=== PATIENT | female | born 1995 | race Caucasian/White ===

== ENCOUNTER → 2022-10-08 13:21 | Outpatient (CLI) | payer BC, SELFPAY ==
[2022-10-08 15:08] LABS: Add Manual Diff / Slide Review NO; Basophils Absolute Auto 100 /uL (0-100); Basophils Percent Auto 0.5 % (0-2); Eosinophils Absolute Auto 100 /uL (0-450); Eosinophils Percent Auto 0.9 % (2-4); Hematocrit 38.8 % (36-46); Hemoglobin 13.4 g/dL (12.0-16.0); Lymphocytes Absolute Auto 2700 /uL (1100-4500); Lymphocytes Percent Auto 28.9 % (25-40); Mean Corpuscular HGB Conc 34.6 % (30-36); Mean Corpuscular Hemoglobin 35.1 PG (26-34); Mean Corpuscular Volume 101.6 fL (80-100); Monocytes Absolute Auto 400 /uL (0-900); Monocytes Percent Auto 4.8 % (3-14); Neutrophils Absolute Auto 6000 /uL (1500-7000); Neutrophils Percent Auto 64.9 % (50-75); Platelet Count 350 X10^3/uL (150-400); Red Blood Cell Count 3.82 X10^6/uL (4.0-5.2); Red Cell Distribution Width 12.6 % (11.6-14.8); White Blood Cell Count 9.3 X10^3/uL (4.5-11.0)
[2022-10-08 15:14] LABS: Hemoglobin A1C% w Est Avg Glu 10.8 % (4.0-6.0)
[2022-10-08 15:46] LABS: Albumin 4.4 g/dL (3.5-5.0); Albumin Globulin Ratio 1.4 (1.0-2.8); Alkaline Phosphatase 208 U/L (38-126); Aspartate Aminotransferase 77 IU/L (14-36); BUN Creatinine Ratio 35.7 (6-22); Bilirubin Total 0.5 mg/dL (0.2-1.3); Blood Urea Nitrogen 20 mg/dL (7-17); Calcium 9.8 mg/dL (8.4-10.2); Carbon Dioxide 14 mmol/L (22-32); Chloride 99 mmol/L (98-107); Cholesterol 283 mg/dL (140-199); Estimated Glomerular Filt Rate > 60 mL/min (>60); Globulin 3.2 g/dL (1.7-4.1); Glucose 355 mg/dL (70-100); HDL Cholesterol 54 mg/dL (40-60); HEMOLYSIS < 15 (0-50); Potassium 4.2 mmol/L (3.4-5.1); Sodium 136 mmol/L (137-145); Total Protein 7.6 g/dL (6.3-8.2)
[2022-10-08 15:52] LABS: Alanine Aminotransferase 67 IU/L (<35)
[2022-10-08 16:06] LABS: Triglycerides 906 mg/dL (35-150)
[2022-10-08 16:16] LABS: Thyroid Stimulating Hormone 1.05 uIU/mL (0.47-4.68)
[2022-10-09 06:09] LABS: HSV 2 IGG AB < 0.91 index (0.00-0.90); HSV1IGG 8.19 index (0.00-0.90)
== END ==
PROVIDERS: Referring Provider Family Medicine; Visit Provider Family Medicine
DX: E10.9 Type 1 diabetes mellitus without complications (principal); B00.89 Other herpesviral infection
CPT/HCPCS: 36415; 80053; 80061; 83036; 84443; 85025; 86695; 86696

== ENCOUNTER 2022-12-15 04:39 | Emergency (ER) | payer BC, SELFPAY ==
[2022-12-15] VITALS (22 sets, daily range): BP systolic 114–130; BP diastolic 71–90; PULSE 98–134; RESP 16–22; TEMP 36.6; O2SAT 94–100; BMI 24.7
--- NOTE | 2022-12-15 04:59 | ED_ITS ---
HPI - General Adult <Jake BellaDO joanna - Last Filed: 12/15/22 17:58> General Chief complaint: Diabetic Problem Stated complaint: DIABETIC COMPLICATIONS Time Seen by Provider: 12/15/22 04:59 Source: patient Mode of arrival: Ambulatory Limitations: no limitations History of Present Illness HPI narrative: Patient is a 27-year-old female. She is a insulin-dependent diabetic. She stated that she did have a fairly high carbohydrate meal this evening. She thought that she had dosed herself with insulin but she now questions as to whether or not the needle that she was using actually broke the skin. Because of this her glucose level raysa to greater than 400. She then dosed herself with 45 units. Her blood sugar then dropped to 130s. She started to generally not feel very well. Did have some vomiting. She states that she is been feeling very anxious secondary to work which she admits also causes her blood sugars to become very erratic. Related Data Allergies Allergy/AdvReac Type Severity Reaction Status Date / Time iodine Allergy Verified 12/15/22 04:58 Penicillins Allergy Hives Verified 12/15/22 04:57 Review of Systems <Jake ShayneDO joanna - Last Filed: 12/15/22 17:58> Cardiovascular Cardiovascular: Reports system reviewed and no additional complaints, except as documented Respiratory Respiratory: Reports system reviewed and no additional complaints, except as documented Gastrointestinal Gastrointestinal: Reports system reviewed and no additional complaints, except as documented Psychiatric Psychiatric: Reports system reviewed and no additional complaints, except as documented Exam <Jake ShayneDO joanna - Last Filed: 12/15/22 17:58> Initial Vital Signs Initial Vital Signs: Vital Signs Pulse Rate 134 H 12/15/22 04:43 Pulse Oximetry 99 12/15/22 04:43 Const General: cooperative and comfortable HENMT Head: normal to inspection and normocephalic Resp Effort & Inspection: normal respiratory effort Auscultation: clear to auscultation bilaterally Cardio Rate: tachycardic Rhythm: regular rhythm GI Inspection: normal to inspection Skin General: no rashes or lesions noted Neuro General: patient alert, patient awake and moves all extremities Extrem General: normal to inspection and capillary refill normal <Joseline Mccallum DO - Last Filed: 12/15/22 14:35> Initial Vital Signs Initial Vital Signs: Vital Signs Pulse Rate 134 H 12/15/22 04:43 Pulse Oximetry 99 12/15/22 04:43 Course <Jake Cavazos DO - Last Filed: 12/15/22 17:58> Orders Ordered: ED Orders 12/15/22 12:00 BMP [Basic Metabolic Panel] Stat Discontinued Medications Sodium Chloride (Normal Saline 0.9%) 1,000 mls @ 1,000 mls/hr IV BOLUS ONE Stop: 12/15/22 07:35 Last Infusion: 12/15/22 07:52 Dose: Infused Documented By: Admin: 12/15/22 06:50 Dose: 1,000 mls/hr Documented By: LY Dextrose/Sodium Chloride (Dextrose 5%-0.45% Ns) 1,000 mls @ 125 mls/hr IV CONT AMAN Last Infusion: 12/15/22 12:57 Dose: 0 mls/hr Documented By: Admin: 12/15/22 10:02 Dose: 125 mls/hr Documented By: BLAKE Dextrose (D10w) 100 mls @ 1,200 mls/hr IV PRN PRN PRN Reason: Hypoglycemia Last Infusion: 12/15/22 12:16 Dose: Infused Documented By: Admin: 12/15/22 12:03 Dose: 1,200 mls/hr Documented By: PEE Insulin Human Regular (Insulin Regular 100 Unit/Ml 3 Ml Vial) 10 unit SUBCUT NOW ONE Stop: 12/15/22 10:12 Last Admin: 12/15/22 10:16 Dose: 10 unit Documented By: BLAKE Co-signed By: CRICKET Ondansetron HCl (Ondansetron 4 Mg Odt) 4 mg SL NOW ONE Stop: 12/15/22 05:02 Last Admin: 12/15/22 05:05 Dose: 4 mg Documented By: LY Potassium Chloride (Potassium Chloride 20 Meq Tab) 40 meq PO NOW ONE Stop: 12/15/22 12:52 Last Admin: 12/15/22 13:14 Dose: 40 meq Documented By: PEE Vital Signs Vital signs: Vital Signs - 8 hr 12/15/22 10:00 12/15/22 10:30 12/15/22 11:00 Pulse Rate 110 H 101 H 103 H Blood Pressure Pulse Oximetry 99 97 97 Oxygen Delivery Method 12/15/22 11:30 12/15/22 12:00 12/15/22 12:10 Pulse Rate 119 H 117 H Blood Pressure 130/90 Pulse Oximetry 98 94 Oxygen Delivery Method Room Air Room Air 12/15/22 12:10 12/15/22 12:30 12/15/22 13:00 Pulse Rate 113 H 104 H 103 H Blood Pressure Pulse Oximetry 94 98 97 Oxygen Delivery Method Room Air Room Air <Joseline Xena, DO - Last Filed: 12/15/22 14:35> Orders Ordered: ED Orders 12/15/22 12:00 BMP [Basic Metabolic Panel] Stat Discontinued Medications Sodium Chloride (Normal Saline 0.9%) 1,000 mls @ 1,000 mls/hr IV BOLUS ONE Stop: 12/15/22 07:35 Last Infusion: 12/15/22 07:52 Dose: Infused Documented By: Admin: 12/15/22 06:50 Dose: 1,000 mls/hr Documented By: LY Dextrose/Sodium Chloride (Dextrose 5%-0.45% Ns) 1,000 mls @ 125 mls/hr IV CONT AMAN Last Infusion: 12/15/22 12:57 Dose: 0 mls/hr Documented By: Admin: 12/15/22 10:02 Dose: 125 mls/hr Documented By: BLAKE Dextrose (D10w) 100 mls @ 1,200 mls/hr IV PRN PRN PRN Reason: Hypoglycemia Last Infusion: 12/15/22 12:16 Dose: Infused Documented By: Admin: 12/15/22 12:03 Dose: 1,200 mls/hr Documented By: PEE Insulin Human Regular (Insulin Regular 100 Unit/Ml 3 Ml Vial) 10 unit SUBCUT NOW ONE Stop: 12/15/22 10:12 Last Admin: 12/15/22 10:16 Dose: 10 unit Documented By: BLAKE Co-signed By: CRICKET Ondansetron HCl (Ondansetron 4 Mg Odt) 4 mg SL NOW ONE Stop: 12/15/22 05:02 Last Admin: 12/15/22 05:05 Dose: 4 mg Documented By: LY Potassium Chloride (Potassium Chloride 20 Meq Tab) 40 meq PO NOW ONE Stop: 12/15/22 12:52 Last Admin: 12/15/22 13:14 Dose: 40 meq Documented By: PEE Vital Signs Vital signs: Vital Signs - 8 hr 12/15/22 10:00 12/15/22 10:30 12/15/22 11:00 Pulse Rate 110 H 101 H 103 H Blood Pressure Pulse Oximetry 99 97 97 Oxygen Delivery Method 12/15/22 11:30 12/15/22 12:00 12/15/22 12:10 Pulse Rate 119 H 117 H Blood Pressure 130/90 Pulse Oximetry 98 94 Oxygen Delivery Method Room Air Room Air 12/15/22 12:10 12/15/22 12:30 12/15/22 13:00 Pulse Rate 113 H 104 H 103 H Blood Pressure Pulse Oximetry 94 98 97 Oxygen Delivery Method Room Air Room Air Medical Decision Making <Jake Cavazos, - Last Filed: 12/15/22 17:58> Lab Data Lab results reviewed: Yes I reviewed the patient's lab results. 12/15/22 05:30 12/15/22 12:00 Labs: Lab Results 12/15/22 12/15/22 12/15/22 Range/Units 05:30 06:48 07:28 WBC 10.7 (4.5-11.0) X10^3/uL RBC 3.67 L (4.0-5.2) X10^6/uL Hgb 13.1 (12.0-16.0) g/dL Hct 37.9 (36-46) % MCV 103.4 H (80-100) fL MCH 35.9 H (26-34) PG MCHC 34.7 (30-36) % RDW 14.2 (11.6-14.8) % Plt Count 283 (150-400) X10^3/uL Neut % (Auto) 68.6 (50-75) % Lymph % (Auto) 18.2 L (25-40) % Whitman % (Auto) 12.2 (3-14) % Eos % (Auto) 0.1 L (2-4) % Baso % (Auto) 0.9 (0-2) % Neut # (Auto) 7300 H (6110-2966) /uL Lymph # (Auto) 2000 (6441-6177) /uL Whitman # (Auto) 1300 H (0-900) /uL Eos # (Auto) 0 (0-450) /uL Baso # (Auto) 100 (0-100) /uL VBG pH 7.33 (7.33-7.43) VBG pCO2 27.4 L (45-50) mmHg VBG pO2 37 (35-45) mmHg VBG HCO3 14 L (24-28) mmol/L VBG Total CO2 15 L (24-29) mmol/L VBG O2 Saturation 68 L (70-75) % VBG Base Excess -12.0 L (0-4) mmol/L FiO2 21 Sodium 136 L (137-145) mmol/L Potassium 3.9 (3.4-5.1) mmol/L Chloride 99 (98-107) mmol/L Carbon Dioxide 11 L (22-32) mmol/L BUN 16 (7-17) mg/dL Creatinine 0.60 (0.52-1.04) mg/dL Estimated GFR > 60 (>60) mL/min BUN/Creatinine Ratio 26.7 H (6-22) Glucose 113 H (70-100) mg/dL Hemoglobin A1c 12.1 H (4.0-6.0) % Calcium 9.8 (8.4-10.2) mg/dL Phosphorus 4.1 (2.5-4.5) mg/dL Magnesium 1.9 (1.6-2.3) mg/dL Total Bilirubin 0.7 (0.2-1.3) mg/dL AST 55 H (14-36) IU/L ALT 84 H (<35) IU/L Alkaline Phosphatase 215 H (38-126) U/L Total Protein 8.0 (6.3-8.2) g/dL Albumin 4.6 (3.5-5.0) g/dL Globulin 3.4 (1.7-4.1) g/dL Albumin/Globulin Ratio 1.4 (1.0-2.8) Lipase 62 (23-300) U/L Serum , Qual Negative (Negative) Urine Color Yellow Urine Appearance Clear Urine pH 5.5 (4.5-8.0) Ur Specific [place] 1.015 (1.000-1.035) Urine Protein Negative (Negative) Urine Glucose (UA) Negative (Negative) g/dL Urine Ketones 3+ H (NEGATIVE) Urine Occult Blood 1+ H (Negative) Urine Nitrate Negative (Negative) Urine Bilirubin 2+ H (NEGATIVE) Ur Bilirubin Confirm Negative (Negative) Urine Urobilinogen 0.2 (0.2) E.U./dL Ur Leukocyte Esterase 2+ H (NEGATIVE) Urine RBC 1-5/hpf (0-5/HPF) Urine WBC 5-10/hpf H (0-5/HPF) Ur Squamous Epith Cells 1-5 /hpf (0-5/HPF) Urine Bacteria Few (2-10) H (None) Ur Culture Indicated? Specimen cultured Ketones 3.68 H (<0.27) mmol/L 12/15/22 12/15/22 Range/Units 08:50 12:00 WBC (4.5-11.0) X10^3/uL RBC (4.0-5.2) X10^6/uL Hgb (12.0-16.0) g/dL Hct (36-46) % MCV (80-100) fL MCH (26-34) PG MCHC (30-36) % RDW (11.6-14.8) % Plt Count (150-400) X10^3/uL Neut % (Auto) (50-75) % Lymph % (Auto) (25-40) % Whitman % (Auto) (3-14) % Eos % (Auto) (2-4) % Baso % (Auto) (0-2) % Neut # (Auto) (8002-6321) /uL Lymph # (Auto) (2566-4628) /uL Whitman # (Auto) (0-900) /uL Eos # (Auto) (0-450) /uL Baso # (Auto) (0-100) /uL VBG pH (7.33-7.43) VBG pCO2 (45-50) mmHg VBG pO2 (35-45) mmHg VBG HCO3 (24-28) mmol/L VBG Total CO2 (24-29) mmol/L VBG O2 Saturation (70-75) % VBG Base Excess (0-4) mmol/L FiO2 Sodium 137 138 (137-145) mmol/L Potassium 3.6 3.3 L (3.4-5.1) mmol/L Chloride 107 106 (98-107) mmol/L Carbon Dioxide 15 L 22 (22-32) mmol/L BUN 13 12 (7-17) mg/dL Creatinine 0.48 L 0.47 L (0.52-1.04) mg/dL Estimated GFR > 60 > 60 (>60) mL/min BUN/Creatinine Ratio 27.1 H 25.5 H (6-22) Glucose 119 H 63 L (70-100) mg/dL Hemoglobin A1c (4.0-6.0) % Calcium 8.4 8.9 (8.4-10.2) mg/dL Phosphorus (2.5-4.5) mg/dL Magnesium (1.6-2.3) mg/dL Total Bilirubin (0.2-1.3) mg/dL AST (14-36) IU/L ALT (<35) IU/L Alkaline Phosphatase (38-126) U/L Total Protein (6.3-8.2) g/dL Albumin (3.5-5.0) g/dL Globulin (1.7-4.1) g/dL Albumin/Globulin Ratio (1.0-2.8) Lipase (23-300) U/L Serum , Qual (Negative) Urine Color Urine Appearance Urine pH (4.5-8.0) Ur Specific [place] (1.000-1.035) Urine Protein (Negative) Urine Glucose (UA) (Negative) g/dL Urine Ketones (NEGATIVE) Urine Occult Blood (Negative) Urine Nitrate (Negative) Urine Bilirubin (NEGATIVE) Ur Bilirubin Confirm (Negative) Urine Urobilinogen (0.2) E.U./dL Ur Leukocyte Esterase (NEGATIVE) Urine RBC (0-5/HPF) Urine WBC (0-5/HPF) Ur Squamous Epith Cells (0-5/HPF) Urine Bacteria (None) Ur Culture Indicated? Ketones (<0.27) mmol/L Point of Care Testing Glucose POC 122 Point of care testing: Point of Care Testing Glucose POC 122 [facility] Narrative Medical decision making narrative: Patient is an insulin-dependent diabetic. There was some question as to whether not she gave her regular dose of insulin last evening. She then ate a meal high in carbohydrates. Her blood sugar than elevated. She then gave herself 45 units of fast acting insulin. Her blood sugar dropped greater than 250 points and approximately 1.5 hours. Initially thought that this was most likely the cause of her symptoms. We then gave her something to eat and she did tolerate oral intake. She still remained tachycardic. Blood was drawn. Patient has a CO2 less than 15. Has ketones. Her blood sugar is actually less than 120. PH is 7.3. She does have an anion gap of 26. We did have difficulty obtaining an IV so this was just a blood draw. I then informed the patient that she does have some lab findings that were consistent with DKA. She has been in DKA in the past. She agreed to another attempt at starting an IV and fluids. She stated that she was actually feeling much better. Care turned over to Dr. Mccallum to follow-up and disposition. <Joseline Mccallum, DO - Last Filed: 12/15/22 14:35> Lab Data Labs: Lab Results 12/15/22 12/15/22 12/15/22 Range/Units 05:30 06:48 07:28 WBC 10.7 (4.5-11.0) X10^3/uL RBC 3.67 L (4.0-5.2) X10^6/uL Hgb 13.1 (12.0-16.0) g/dL Hct 37.9 (36-46) % MCV 103.4 H (80-100) fL MCH 35.9 H (26-34) PG MCHC 34.7 (30-36) % RDW 14.2 (11.6-14.8) % Plt Count 283 (150-400) X10^3/uL Neut % (Auto) 68.6 (50-75) % Lymph % (Auto) 18.2 L (25-40) % Whitman % (Auto) 12.2 (3-14) % Eos % (Auto) 0.1 L (2-4) % Baso % (Auto) 0.9 (0-2) % Neut # (Auto) 7300 H (0644-8600) /uL Lymph # (Auto) 2000 (9354-2192) /uL Whitman # (Auto) 1300 H (0-900) /uL Eos # (Auto) 0 (0-450) /uL Baso # (Auto) 100 (0-100) /uL VBG pH 7.33 (7.33-7.43) VBG pCO2 27.4 L (45-50) mmHg VBG pO2 37 (35-45) mmHg VBG HCO3 14 L (24-28) mmol/L VBG Total CO2 15 L (24-29) mmol/L VBG O2 Saturation 68 L (70-75) % VBG Base Excess -12.0 L (0-4) mmol/L FiO2 21 Sodium 136 L (137-145) mmol/L Potassium 3.9 (3.4-5.1) mmol/L Chloride 99 (98-107) mmol/L Carbon Dioxide 11 L (22-32) mmol/L BUN 16 (7-17) mg/dL Creatinine 0.60 (0.52-1.04) mg/dL Estimated GFR > 60 (>60) mL/min BUN/Creatinine Ratio 26.7 H (6-22) Glucose 113 H (70-100) mg/dL Hemoglobin A1c 12.1 H (4.0-6.0) % Calcium 9.8 (8.4-10.2) mg/dL Phosphorus 4.1 (2.5-4.5) mg/dL Magnesium 1.9 (1.6-2.3) mg/dL Total Bilirubin 0.7 (0.2-1.3) mg/dL AST 55 H (14-36) IU/L ALT 84 H (<35) IU/L Alkaline Phosphatase 215 H (38-126) U/L Total Protein 8.0 (6.3-8.2) g/dL Albumin 4.6 (3.5-5.0) g/dL Globulin 3.4 (1.7-4.1) g/dL Albumin/Globulin Ratio 1.4 (1.0-2.8) Lipase 62 (23-300) U/L Serum , Qual Negative (Negative) Urine Color Yellow Urine Appearance Clear Urine pH 5.5 (4.5-8.0) Ur Specific [place] 1.015 (1.000-1.035) Urine Protein Negative (Negative) Urine Glucose (UA) Negative (Negative) g/dL Urine Ketones 3+ H (NEGATIVE) Urine Occult Blood 1+ H (Negative) Urine Nitrate Negative (Negative) Urine Bilirubin 2+ H (NEGATIVE) Ur Bilirubin Confirm Negative (Negative) Urine Urobilinogen 0.2 (0.2) E.U./dL Ur Leukocyte Esterase 2+ H (NEGATIVE) Urine RBC 1-5/hpf (0-5/HPF) Urine WBC 5-10/hpf H (0-5/HPF) Ur Squamous Epith Cells 1-5 /hpf (0-5/HPF) Urine Bacteria Few (2-10) H (None) Ur Culture Indicated? Specimen cultured Ketones 3.68 H (<0.27) mmol/L 12/15/22 12/15/22 Range/Units 08:50 12:00 WBC (4.5-11.0) X10^3/uL RBC (4.0-5.2) X10^6/uL Hgb (12.0-16.0) g/dL Hct (36-46) % MCV (80-100) fL MCH (26-34) PG MCHC (30-36) % RDW (11.6-14.8) % Plt Count (150-400) X10^3/uL Neut % (Auto) (50-75) % Lymph % (Auto) (25-40) % Whitman % (Auto) (3-14) % Eos % (Auto) (2-4) % Baso % (Auto) (0-2) % Neut # (Auto) (9355-0663) /uL Lymph # (Auto) (5524-0121) /uL Whitman # (Auto) (0-900) /uL Eos # (Auto) (0-450) /uL Baso # (Auto) (0-100) /uL VBG pH (7.33-7.43) VBG pCO2 (45-50) mmHg VBG pO2 (35-45) mmHg VBG HCO3 (24-28) mmol/L VBG Total CO2 (24-29) mmol/L VBG O2 Saturation (70-75) % VBG Base Excess (0-4) mmol/L FiO2 Sodium 137 138 (137-145) mmol/L Potassium 3.6 3.3 L (3.4-5.1) mmol/L Chloride 107 106 (98-107) mmol/L Carbon Dioxide 15 L 22 (22-32) mmol/L BUN 13 12 (7-17) mg/dL Creatinine 0.48 L 0.47 L (0.52-1.04) mg/dL Estimated GFR > 60 > 60 (>60) mL/min BUN/Creatinine Ratio 27.1 H 25.5 H (6-22) Glucose 119 H 63 L (70-100) mg/dL Hemoglobin A1c (4.0-6.0) % Calcium 8.4 8.9 (8.4-10.2) mg/dL Phosphorus (2.5-4.5) mg/dL Magnesium (1.6-2.3) mg/dL Total Bilirubin (0.2-1.3) mg/dL AST (14-36) IU/L ALT (<35) IU/L Alkaline Phosphatase (38-126) U/L Total Protein (6.3-8.2) g/dL Albumin (3.5-5.0) g/dL Globulin (1.7-4.1) g/dL Albumin/Globulin Ratio (1.0-2.8) Lipase (23-300) U/L Serum , Qual (Negative) Urine Color Urine Appearance Urine pH (4.5-8.0) Ur Specific [place] (1.000-1.035) Urine Protein (Negative) Urine Glucose (UA) (Negative) g/dL Urine Ketones (NEGATIVE) Urine Occult Blood (Negative) Urine Nitrate (Negative) Urine Bilirubin (NEGATIVE) Ur Bilirubin Confirm (Negative) Urine Urobilinogen (0.2) E.U./dL Ur Leukocyte Esterase (NEGATIVE) Urine RBC (0-5/HPF) Urine WBC (0-5/HPF) Ur Squamous Epith Cells (0-5/HPF) Urine Bacteria (None) Ur Culture Indicated? Ketones (<0.27) mmol/L Point of Care Testing Glucose POC 122 Point of care testing: Point of Care Testing Glucose POC 122 MDM Narrative Medical decision making narrative: Patient is an insulin-dependent diabetic. There was some question as to whether not she gave her regular dose of insulin last evening. She then ate a meal high in carbohydrates. Her blood sugar than elevated. She then gave herself 45 units of fast acting insulin. Her blood sugar dropped greater than 250 points and approximately 1.5 hours. Initially thought that this was most likely the cause of her symptoms. We then gave her something to eat and she did tolerate oral intake. She still remained tachycardic. Blood was drawn. Patient has a CO2 less than 15. Has ketones. Her blood sugar is actually less than 120. PH is 7.3. She does have an anion gap of 26. We did have difficulty obtaining an IV so this was just a blood draw. I then informed the patient that she does have some lab findings that were consistent with DKA. She has been in DKA in the past. She agreed to another attempt at starting an IV and fluids. She stated that she was actually feeling much better. Care turned over to Dr. Mccallum to follow-up and disposition. Dr. Mccallum-patient signed out to me by Dr. Cavazos of seen evaluated patient myself. She is awake alert oriented she is eating her heart rate has improved with a L fluid. She does have an anion gap. Will give her another L of fluid recheck labs. She is positive for ketones pH 7.3, she is quite adamant that she does not want to be admitted. Patient given 10 units subcutaneous insulin placed on D5 half-normal she did become hypoglycemic required D10 however she was never vomiting she was always able to eat and drink. Repeat labs show closed anion gap. Hemoglobin A1c is greater than 12 poorly-controlled diabetic. She does not have a provider appear trying to get an loftsman. Patient is potassium 3.3 she is given oral potassium. She overall appears very well. She feels very comfortable going home and managing if she becomes slightly hypoglycemic. At this time she does not want to be admitted there is no reason for her to be admitted. Discharge Plan Departure Patient Disposition: Home Clinical Impression: Diabetes mellitus with ketoacidosis Instructions: DI for Diabetic Ketoacidosis Activity Restrictions/Additional Instructions: *You have been diagnosed with diabetic ketoacidosis *What to do: At this time please continue to check her sugars regularly at home over next few hours. Eat a good meal. I do encourage you to see your primary care provider who can point You towards endocrinology if needed. *Continue to take medications as directed *Follow up with your primary care provider in 2-3 days or call [phone] *Return to ER if you should have increasing weakness nausea vomiting abdominal pain fever or any new, worsening or concerning symptoms Stand Alone Forms: Patient Portal/API
[2022-12-15] MEDS: ONDANSETRON 4 MG ODT SL (05:05)
[2022-12-15 06:10] LABS: Add Manual Diff / Slide Review NO; Basophils Absolute Auto 100 /uL (0-100); Basophils Percent Auto 0.9 % (0-2); Eosinophils Absolute Auto 0 /uL (0-450); Eosinophils Percent Auto 0.1 % (2-4); Hematocrit 37.9 % (36-46); Hemoglobin 13.1 g/dL (12.0-16.0); Lymphocytes Absolute Auto 2000 /uL (1100-4500); Lymphocytes Percent Auto 18.2 % (25-40); Mean Corpuscular HGB Conc 34.7 % (30-36); Mean Corpuscular Hemoglobin 35.9 PG (26-34); Mean Corpuscular Volume 103.4 fL (80-100); Monocytes Absolute Auto 1300 /uL (0-900); Monocytes Percent Auto 12.2 % (3-14); Neutrophils Absolute Auto 7300 /uL (1500-7000); Neutrophils Percent Auto 68.6 % (50-75); Platelet Count 283 X10^3/uL (150-400); Red Blood Cell Count 3.67 X10^6/uL (4.0-5.2); Red Cell Distribution Width 14.2 % (11.6-14.8); White Blood Cell Count 10.7 X10^3/uL (4.5-11.0)
[2022-12-15 06:33] LABS: Alanine Aminotransferase 84 IU/L (<35); Albumin 4.6 g/dL (3.5-5.0); Albumin Globulin Ratio 1.4 (1.0-2.8); Alkaline Phosphatase 215 U/L (38-126); Aspartate Aminotransferase 55 IU/L (14-36); BUN Creatinine Ratio 26.7 (6-22); Bilirubin Total 0.7 mg/dL (0.2-1.3); Blood Urea Nitrogen 16 mg/dL (7-17); Calcium 9.8 mg/dL (8.4-10.2); Carbon Dioxide 11 mmol/L (22-32); Chloride 99 mmol/L (98-107); Estimated Glomerular Filt Rate > 60 mL/min (>60); Globulin 3.4 g/dL (1.7-4.1); Glucose 113 mg/dL (70-100); HEMOLYSIS < 15 (0-50); Ketones (Beta-Hydroxybutyrate) 3.68 mmol/L (<0.27); Lipase 62 U/L (23-300); Potassium 3.9 mmol/L (3.4-5.1); Sodium 136 mmol/L (137-145)
[2022-12-15 06:34] LABS: Magnesium 1.9 mg/dL (1.6-2.3); Phosphorous 4.1 mg/dL (2.5-4.5)
[2022-12-15 06:46] LABS: Pregnancy Test Serum,Qual Negative (Negative)
[2022-12-15] MEDS: SODIUM CHLORIDE 0.9% 1,000 ML 1000 ML IV (06:50)
[2022-12-15 07:01] LABS: Fractionated Inspired Oxygen 21; HCO3 VBG 14 mmol/L (24-28); Oxygen Saturation VBG 68 % (70-75); PCO2 VBG 27.4 mmHg (45-50); PO2 VBG 37 mmHg (35-45); Total CO2 VBG 15 mmol/L (24-29); pH VBG 7.33 (7.33-7.43)
[2022-12-15 07:58] LABS: Appearance Urine UA CLEAR; Bilirubin Urine UA 2+ (NEGATIVE); Color Urine UA YELLOW; Glucose Urine UA NEGATIVE (Negative); Ketones Urine UA 3+ (NEGATIVE); Leukocyte Esterase Urine UA 2+ (NEGATIVE); Nitrite Urine UA NEGATIVE (Negative); Occult Blood Urine UA 1+ (Negative); Protein Urine UA NEGATIVE (Negative); Specific Gravity Urine UA 1.015 (1.000-1.035); Urobilinogen Urine UA 0.2 E.U./dL (0.2)
[2022-12-15 08:02] LABS: pH Urine UA 5.5 (4.5-8.0)
[2022-12-15 08:06] LABS: Bacteria Urine Few (2-10); Ictotest Urine Negative (Negative); RBC Urine 1-5/HPF (0-5/HPF); Squamous Epithelial Cell Urine 1-5 /HPF (0-5/HPF); WBC Urine 5-10/HPF (0-5/HPF)
[2022-12-15 08:07] LABS: Culture Indicated Urine Specimen Cultured
[2022-12-15 09:20] LABS: BUN Creatinine Ratio 27.1 (6-22); Blood Urea Nitrogen 13 mg/dL (7-17); Calcium 8.4 mg/dL (8.4-10.2); Carbon Dioxide 15 mmol/L (22-32); Chloride 107 mmol/L (98-107); Estimated Glomerular Filt Rate > 60 mL/min (>60); Glucose 119 mg/dL (70-100); HEMOLYSIS < 15 (0-50); Potassium 3.6 mmol/L (3.4-5.1); Sodium 137 mmol/L (137-145)
[2022-12-15 09:59] LABS: Hemoglobin A1C% w Est Avg Glu 12.1 % (4.0-6.0)
[2022-12-15] MEDS: DEXTROSE 5%-0.45% NS 1,000 ML 125 ML IV (10:02)
--- NOTE | 2022-12-15 10:11 | PC.NURSE ---
Dr. Mccallum to re-time insulin for now; aware of BG 98, okay'd pt to eat small amount; pt tolerating PO food and fluids at this time.
[2022-12-15] MEDS: INSULIN REGULAR 100 UNIT/ML 3 ML VIAL 10 UNIT SUBCUT (10:16)
[2022-12-15] MEDS: DEXTROSE 10 % IN WATER 100 ML 1200 ML IV (12:03)
[2022-12-15 12:21] LABS: BUN Creatinine Ratio 25.5 (6-22); Blood Urea Nitrogen 12 mg/dL (7-17); Calcium 8.9 mg/dL (8.4-10.2); Carbon Dioxide 22 mmol/L (22-32); Chloride 106 mmol/L (98-107); Estimated Glomerular Filt Rate > 60 mL/min (>60); Glucose 63 mg/dL (70-100); HEMOLYSIS < 15 (0-50); Potassium 3.3 mmol/L (3.4-5.1); Sodium 138 mmol/L (137-145)
[2022-12-15] MEDS: POTASSIUM CHLORIDE 20 MEQ TAB 40 MEQ PO (13:14)
== END 2022-12-15 14:42 | disposition home or self-care (01) ==
PROVIDERS: Emergency Medicine; Emergency Provider Emergency Medicine
DX: E11.10 Type 2 diabetes mellitus with ketoacidosis without coma (principal)
CPT/HCPCS: 36415; 80048; 80053; 81001; 82009; 82805; 82962; 83036; 83690; 83735; 84100; 84703; 85025; 87086; 96360; 96361; 96372; 99284

== ENCOUNTER 2022-12-29 12:46 | Emergency (ER) | payer OTHER, SELFPAY ==
--- NOTE | 2022-12-29 12:53 | ED.UPPEXIN ---
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 She stuck at her 1st MCP bone. No active bleeding tetanus is up-to-date. He is not report any pain at her thumb and no changes in range of motion. Patient is unsure of the medical history an immunization status of the patient she was working with. Related Data Allergies Allergy/AdvReac Type Severity Reaction Status Date / Time iodine Allergy Severe Anaphylaxis Verified 12/29/22 13:02 amoxicillin Allergy Hives Verified 12/29/22 13:02 Penicillins Allergy Hives Verified 12/29/22 13:02 Review of Systems <Joshua Gomez PA-C - Last Filed: 12/29/22 13:03> Review of Systems Narrative: GENERAL: Denies chills, fatigue, malaise, fever, sweats. HEENT: Denies sinus pain, ear pain, sore throat, difficulty swallowing, dizziness. RESPIRATORY: Denies dyspnea, cough, wheezing, hemoptysis, sputum. CARDIOVASCULAR: Denies chest pain, palpitations, orthopnea, edema, GASTROINTESTINAL: Denies nausea, vomiting, abdominal pain, diarrhea, constipation, melena. : Denies dysuria, frequency, incontinence, hematuria, urinary retention. MUSCULOSKELETAL: denies weakness, joint pain, or bony pain SKIN: Left Thumb injury NEUROLOGIC: Denies weakness, headache, numbness, change in speech, confusion, seizures, incoordination. PSYCHIATRIC: No concerning psychosocial issues. 12 point review of systems is negative except for those stated above Patient History <Joshua Gomez PA-C - Last Filed: 12/29/22 13:03> Social History Smoking Status: Never smoker alcohol intake frequency: a few times a month Substance Use Type: does not use Exam <MANFRED Jalloh Last Filed: 12/29/22 13:03> Narrative Exam Narrative: GENERAL: Well-developed patient, in mild distress. HEAD: Atraumatic. Normocephalic. EYES: Pupils equal round and reactive. Extraocular motions intact. No scleral icterus. No injection or drainage. ENT: Nose without bleeding, purulent drainage. Throat without erythema, tonsillar hypertrophy or exudate. Airway patent. NECK: Trachea midline. Non tender CARDIOVASCULAR: Regular rate and rhythm without murmurs, gallops, or rubs. RESPIRATORY: Clear to auscultation. Breath sounds equal bilaterally. No wheezes, rales, or rhonchi. GASTROINTESTINAL: Abdomen soft, non-tender, nondistended. EXTREMITIES: No edema or joint tenderness. BACK: Nontender without deformity or crepitance. No flank tenderness. NEURO: AOx3. SKIN: Very small puncture injury to the 1st MCP. No active bleeding, no spreading erythema, no evidence of foreign bodies Initial Vital Signs Initial Vital Signs: Vital Signs Temperature 98 F 12/29/22 12:57 Pulse Rate 98 H 12/29/22 12:57 Respiratory Rate 18 12/29/22 12:57 Blood Pressure 118/79 12/29/22 12:57 Pulse Oximetry 97 12/29/22 12:57 Oxygen Delivery Method Room Air 12/29/22 12:57 <Yvette Chris DO - Last Filed: 12/29/22 13:29> Initial Vital Signs Initial Vital Signs: Vital Signs Temperature 98 F 12/29/22 12:57 Pulse Rate 98 H 12/29/22 12:57 Respiratory Rate 18 12/29/22 12:57 Blood Pressure 118/79 12/29/22 12:57 Pulse Oximetry 97 12/29/22 12:57 Oxygen Delivery Method Room Air 12/29/22 12:57 Course <Joshua Gomez PA-C - Last Filed: 12/29/22 13:03> Vital Signs Vital signs: Vital Signs - 8 hr 12/29/22 12:57 Temperature 98 F Pulse Rate 98 H Respiratory Rate 18 Blood Pressure 118/79 Pulse Oximetry 97 Oxygen Delivery Method Room Air <Yvette Chris DO - Last Filed: 12/29/22 13:29> Vital Signs Vital signs: Vital Signs - 8 hr 12/29/22 12:57 Temperature 98 F Pulse Rate 98 H Respiratory Rate 18 Blood Pressure 118/79 Pulse Oximetry 97 Oxygen Delivery Method Room Air MDM - Extremity Injury (Upper) <Joshua Gomez PA-C - Last Filed: 12/29/22 13:03> MDM Narrative Medical decision making narrative: MDM * differential diagnosis includes but not limited to needle stick, fracture, retained foreign body * Prior records reviewed: Patient was seen here 2 weeks ago due to diabetes mellitus with ketoacidosis. Insulin-dependent diabetic. Patient was given fluids and labs rechecked. Anion gap improved with fluids. Patient was adamant to be discharged home and was discharged. * My lab interpretation: None obtained * My imgaing interpretation: None obtained * Clinical Decision Rules/Scores evaluated: None * Independent discussions with: None ED Course: This is a 27-year-old female presents emergency department due to a needle stick injury while working here in the hospital treating the patient. Exposure panel order set ordered, please see accordingly when results arrived.. Patient declined any prophylactic treatments. No evidence of any kind of significant thumb injury that would need any further imaging or evaluation. Shared Decision Making: Discussed plan with patient who is comfortable with the plan. Social Considerations: None Disposition: Discharged to home Discharge Plan Departure Patient Disposition: Home Clinical Impression: Needlestick injury accident Activity Restrictions/Additional Instructions: Thank you for coming to the [facility] Emergency Department today. I am sorry that this happened to. We will call to inform you of any significant results that would need further management. Please keep an eye on the wound to see if it develops any spreading redness or other signs of infection. I hope you feel better soon. Please follow up with your primary care provider within a week if your symptoms continue. If you do not have a primary care provider please contact the [facility] Resource line at [phone]. They will ask some questions about your medical history and help you get set up with a provider in the community. Stand Alone Forms: Patient Portal/API ED Sign-out <Yvetet Chris DO - Last Filed: 12/29/22 13:29> Cosign ED Attending Homer Attestation: I was immediately available in the department for consultation.
[2022-12-29 12:57] VITALS: BP 118/79; PULSE 98; RESP 18; TEMP 36.6; O2SAT 97; BMI 23.7
[2022-12-29 13:51] LABS: Alanine Aminotransferase 50 IU/L (<35)
[2022-12-29 16:25] LABS: HIV 1 & 2 Ab/Ag 4th Gen Combo NEGATIVE (NEGATIVE); Hep C Virus Ab w/Reflex Quant NEGATIVE s/c (NEGATIVE); Hepatitis B Surface Antigen NEGATIVE s/c (NEGATIVE)
[2023-01-01 08:08] LABS: Hepatitis B Surf Ab Qualitativ Non Reactive (.)
== END 2022-12-29 13:15 | disposition home or self-care (01) ==
PROVIDERS: Emergency Provider Physician Assistant Medical
DX: Z77.21 Contact with and (suspected) exposure to potentially hazardous body fluids (principal)
CPT/HCPCS: 36415; 99282; 99283

== ENCOUNTER 2023-09-08 12:51 | Emergency (ER) | payer OTHER, SELFPAY ==
[2023-09-08] VITALS (13 sets, daily range): BP systolic 120–123; BP diastolic 54–79; PULSE 102–115; RESP 16; TEMP 37.1; O2SAT 96–99; BMI 24.3
--- NOTE | 2023-09-08 13:00 | ED_ITS ---
HPI - Abdominal Pain General Chief Complaint: Abdominal Pain Stated Complaint: abd pain Time Seen by Provider: 09/08/23 13:00 Source: patient, RN notes reviewed and old records reviewed Mode of arrival: Ambulatory Limitations: no limitations History of Present Illness HPI narrative: 27-year-old female, insulin-dependent diabetic presents with complaint of abdominal pain, flank pain urgency and sense of incomplete emptying. Denies any dysuria. Patient notes isn't running a little bit high lately. Patient has been feeling unwell for several days. Patient states no fevers but has felt a little bit chilled. Has had nausea but no vomiting. States it feels different than when they have had DKA in the past they do not feel like there and ketosis. States that they are having little bit issues with bowel movements while on vacation and very hot climate but that is normalized. Had menses but was only a day rather than typical 7 days. No new vaginal bleeding or discharge otherwise. Patient is on Lantus and NovoLog. Used to be on losartan but broke out in hives so this was stopped. No prior surgeries. Allergy to iodine, amoxicillin latex and penicillin. No tobacco, occasional alcohol, no recreational drugs. Related Data Previous Rx's Medication Instructions Recorded ciprofloxacin HCl 500 mg tablet 500 mg PO Q12H #14 tabs 09/08/23 Allergies Allergy/AdvReac Type Severity Reaction Status Date / Time iodine Allergy Severe Anaphylaxis Verified 12/29/22 13:02 amoxicillin Allergy Hives Verified 12/29/22 13:02 latex Allergy Verified 09/08/23 12:58 Penicillins Allergy Hives Verified 12/29/22 13:02 Review of Systems Review of Systems ROS Unobtainable: All systems reviewed & are unremarkable except as noted in HPI and below Patient History Social History Smoking Status: Never smoker Smoking Status: Never smoker alcohol intake frequency: holidays/special occasions only Substance Use Type: does not use Exam Narrative Exam Narrative: GENERAL: Alert and oriented x three, female in mild distress HEENT: Head normocephalic, atraumatic, EOMI, pupils reactive, face symmetric, moist mucous membranes NECK: Supple, full range of motion CARDIOVASCULAR: Regular rate and rhythm without murmurs, rubs or gallops. RESPIRATORY: Breath sounds equal bilaterally, no wheezes rales or rhonchi. ABDOMEN: Soft, mild bilateral lower abdominal tenderness. Normoactive bowel sounds all 4 quadrants. No guarding or rebound, rigidity, no mass : Mild bilateral CVA tenderness EXTREMITIES: Normal range of motion, no clubbing or edema. Neurovascularly intact NEUROLOGICAL: Cranial nerves II through XII grossly intact. Moving all extremities. Normal gait. SKIN: Warm, dry, no petechiae, no rashes or lesions. Initial Vital Signs Initial Vital Signs: Vital Signs Temperature 98.7 F 09/08/23 12:55 Pulse Rate 113 H 09/08/23 12:55 Respiratory Rate 16 09/08/23 12:55 Blood Pressure 120/54 L 09/08/23 12:55 Pulse Oximetry 97 09/08/23 12:55 Oxygen Delivery Method Room Air 09/08/23 12:55 Course Orders Ordered: Discontinued Medications Sodium Chloride (Normal Saline 0.9%) 1,000 mls @ 1,000 mls/hr IV BOLUS ONE Stop: 09/08/23 14:09 Last Admin: 09/08/23 16:36 Dose: Not Given Documented By: ARCELIA Vital Signs Vital signs: Vital Signs - 8 hr 09/08/23 12:55 09/08/23 13:15 09/08/23 13:17 Temperature 98.7 F Pulse Rate 113 H 115 H Respiratory Rate 16 Blood Pressure 120/54 L 122/70 Pulse Oximetry 97 97 Oxygen Delivery Method Room Air 09/08/23 13:17 09/08/23 13:30 09/08/23 14:00 Temperature Pulse Rate 110 H 106 H 109 H Respiratory Rate Blood Pressure Pulse Oximetry 97 99 98 Oxygen Delivery Method 09/08/23 14:30 09/08/23 15:00 09/08/23 15:30 Temperature Pulse Rate 107 H 112 H 107 H Respiratory Rate Blood Pressure Pulse Oximetry 97 97 98 Oxygen Delivery Method 09/08/23 16:00 09/08/23 16:18 09/08/23 16:18 Temperature Pulse Rate 103 H 103 H Respiratory Rate Blood Pressure 120/79 Pulse Oximetry 97 96 Oxygen Delivery Method 09/08/23 16:30 09/08/23 16:30 Temperature Pulse Rate 103 H Respiratory Rate Blood Pressure 123/76 Pulse Oximetry 97 Oxygen Delivery Method MDM - Abdominal Pain Lab Data 09/08/23 13:32 09/08/23 13:32 Labs: Lab Results 09/08/23 09/08/23 09/08/23 Range/Units 13:09 13:10 13:32 WBC 8.0 (4.5-11.0) X10^3/uL RBC 3.51 L (4.0-5.2) X10^6/uL Hgb 12.4 (12.0-16.0) g/dL Hct 35.9 L (36-46) % MCV 102.3 H (80-100) fL MCH 35.2 H (26-34) PG MCHC 34.4 (30-36) % RDW 13.2 (11.6-14.8) % Plt Count 329 (150-400) X10^3/uL Neut % (Auto) 64.5 (50-75) % Lymph % (Auto) 26.0 (25-40) % [place] % (Auto) 5.9 (3-14) % Eos % (Auto) 3.3 (2-4) % Baso % (Auto) 0.3 (0-2) % Neut # (Auto) 5200 (3654-7927) /uL Lymph # (Auto) 2100 (9925-3067) /uL [place] # (Auto) 500 (0-900) /uL Eos # (Auto) 300 (0-450) /uL Baso # (Auto) 0 (0-100) /uL VBG pH 7.33 (7.33-7.43) VBG pCO2 24.8 L (45-50) mmHg VBG pO2 97 H (35-45) mmHg VBG HCO3 13 L (24-28) mmol/L VBG Total CO2 12 L (24-29) mmol/L VBG O2 Saturation 97 H (70-75) % VBG Base Excess -11.0 L (0-4) mmol/L FiO2 21 Sodium 136 L (137-145) mmol/L Potassium 3.4 (3.4-5.1) mmol/L Chloride 108 H (98-107) mmol/L Carbon Dioxide 10 L (22-32) mmol/L BUN 15 (7-17) mg/dL Creatinine 0.59 (0.52-1.04) mg/dL Estimated GFR > 60 (>60) mL/min BUN/Creatinine Ratio 25.4 H (6-22) Glucose 312 H (70-100) mg/dL Calcium 8.4 (8.4-10.2) mg/dL Total Bilirubin 0.7 (0.2-1.3) mg/dL AST 43 H (14-36) IU/L ALT 64 H (<35) IU/L Alkaline Phosphatase 224 H (38-126) U/L Total Protein 6.8 (6.3-8.2) g/dL Albumin 3.8 (3.5-5.0) g/dL Globulin 3.0 (1.7-4.1) g/dL Albumin/Globulin Ratio 1.3 (1.0-2.8) Lipase 55 (23-300) U/L Urine RBC 0-1/hpf (0-5/HPF) Urine WBC 1-5/hpf (0-5/HPF) Ur Squamous Epith Cells 1-5 /hpf (0-5/HPF) Ur Renal Epithelial Cell 1-5/hpf H (0-1/HPF) Urine Bacteria None seen (None) Ur Culture Indicated? Cult not indicated Vol Urine Centrifuged 10ml (spun) Ketones 3.45 H (<0.27) mmol/L Point of care testing: Point of Care Testing Test Results Negative Urine Dip Bedside Urine Glucose 1000 mg/dl Bedside Urine Bilirubin - Negative Bedside Urine Ketone +++ 80 Urine Specific [place] 1.020 Bedside Urine Occult Blood ++ Bedside Urine pH 6.0 Bedside Urine Protein + 30 Bedside Urine Urobilinogen - Negative Bedside Urine Nitrite - Negative Bedside Urine Leukocytes +/- 15 Esterase MDM Narrative Medical decision making narrative: 27-year-old female insulin-dependent diabetic who presents with complaint of lower abdominal pain bilateral flank pain. Does have some urinary symptoms. Slightly tachycardic but otherwise appropriate vitals. Urine shows ketones, glucose and leukocyte esterase. Microscopy shows 1 red cell 1-5 white cells 1-5 squamous 1-5 renal epithelials, no bacteria. Urine negative Labs, VBG shows a pH of 7.33, CO2 of 24 PO2 of 97 bicarb of 13. White count 8 hemoglobin of 12.4 macrocytosis, platelets of 329. Sodium 136 potassium of 3.4 chloride of 108 CO2 of 10, BUN 15 creatinine 0.59 glucose of 312, bilirubin 0.7, AST of 43 ALT is 64 alk-phos of 224. Lipase of 55. Ketones is positive. Anion gap of 18 Abdominal ultrasound is negative. Spoke with patient she reluctant to have IV fluids. They prefer orally hydrating and are not vomiting. Discussed I would recommend IV fluids. Patient is pretty adamant they do not wish to be this at this time. Reviewed all the findings sides pH of 7.33 they do meet criteria for DKA, after discussion with patient there still very reluctant for IV fluids they has been dosing with her own insulin. We discussed potential for UTI or pyelonephritis causing some hyperglycemia they prefer to return home start oral antibiotics orally hydrate at home but we discussed needs to have very low threshold to return has a right on the edge of DKA and could continue to worsen and require hospitalization. Patient expresses understanding and discussed if not having any improvement in symptoms the next 24 hours should return for re-evaluation. Discharge Plan Departure Patient Disposition: Home Clinical Impression: Hyperglycemia, UTI (urinary tract infection) Activity Restrictions/Additional Instructions: You are very close to DKA or diabetic ketoacidosis based on your labs and evaluation today. Please make sure you are hydrating plenty and watching your sugars closely. If you are not improving over the next 24 hours you do need to return for re-evaluation. Your urine does show possible infection, cultures pending but please take antibiotics until completed. [facility] [place]. You can take Tylenol up to a 1000 mg every 6 hours as needed, you can take ibuprofen up to 600 mg every 6 hours as needed as well. Please return for fevers, worsening abdominal back or flank pain, any vomiting, if your sugars continue to be elevated or high, if you are having any new swelling in your extremities, difficulty with breathing, lightheadedness or other new or concerning changes. Prescriptions: New ciprofloxacin HCl 500 mg tablet 500 mg PO Q12H Qty: 14 0RF Stand Alone Forms: Patient Portal/API, Work Release Note
--- NOTE | 2023-09-08 13:30 | PC.NURSE ---
Pt states that she would rather have lab come up for a straight stick as opposed to an IV. BAILEY Chris advised.
[2023-09-08 13:34] LABS: Urine Volume 10mL (spun)
[2023-09-08 13:35] LABS: Bacteria Urine None Seen; Renal Epithelial Cells Urine 1-5/HPF (0-1/HPF); Squamous Epithelial Cell Urine 1-5 /HPF (0-5/HPF); WBC Urine 1-5/HPF (0-5/HPF)
[2023-09-08 13:36] LABS: Culture Indicated Urine Cult Not Indicated; RBC Urine 0-1/HPF (0-5/HPF)
[2023-09-08 13:45] LABS: Fractionated Inspired Oxygen 21; HCO3 VBG 13 mmol/L (24-28); Oxygen Saturation VBG 97 % (70-75); PCO2 VBG 24.8 mmHg (45-50); PO2 VBG 97 mmHg (35-45); Total CO2 VBG 12 mmol/L (24-29); pH VBG 7.33 (7.33-7.43)
[2023-09-08 13:46] LABS: Add Manual Diff / Slide Review NO; Basophils Absolute Auto 0 /uL (0-100); Basophils Percent Auto 0.3 % (0-2); Eosinophils Absolute Auto 300 /uL (0-450); Eosinophils Percent Auto 3.3 % (2-4); Hematocrit 35.9 % (36-46); Hemoglobin 12.4 g/dL (12.0-16.0); Lymphocytes Absolute Auto 2100 /uL (1100-4500); Mean Corpuscular HGB Conc 34.4 % (30-36); Mean Corpuscular Hemoglobin 35.2 PG (26-34); Mean Corpuscular Volume 102.3 fL (80-100); Monocytes Absolute Auto 500 /uL (0-900); Monocytes Percent Auto 5.9 % (3-14); Neutrophils Absolute Auto 5200 /uL (1500-7000); Neutrophils Percent Auto 64.5 % (50-75); Platelet Count 329 X10^3/uL (150-400); Red Blood Cell Count 3.51 X10^6/uL (4.0-5.2); Red Cell Distribution Width 13.2 % (11.6-14.8)
[2023-09-08 14:08] LABS: Alanine Aminotransferase 64 IU/L (<35); Albumin 3.8 g/dL (3.5-5.0); Albumin Globulin Ratio 1.3 (1.0-2.8); Alkaline Phosphatase 224 U/L (38-126); Aspartate Aminotransferase 43 IU/L (14-36); BUN Creatinine Ratio 25.4 (6-22); Bilirubin Total 0.7 mg/dL (0.2-1.3); Blood Urea Nitrogen 15 mg/dL (7-17); Calcium 8.4 mg/dL (8.4-10.2); Carbon Dioxide 10 mmol/L (22-32); Chloride 108 mmol/L (98-107); Estimated Glomerular Filt Rate > 60 mL/min (>60); Glucose 312 mg/dL (70-100); HEMOLYSIS < 15 (0-50); Lipase 55 U/L (23-300); Potassium 3.4 mmol/L (3.4-5.1); Sodium 136 mmol/L (137-145); Total Protein 6.8 g/dL (6.3-8.2)
--- NOTE | 2023-09-08 14:24 | DI.US.S_ITS ---
PROCEDURE: US ABDOMEN COMPLETE INDICATIONS: BILATERAL FLANK PAIN; HYPERGLYCEMIA TECHNIQUE: Real-time scanning was performed of the abdominal and retroperitoneal organs, with image documentation. COMPARISON: None. FINDINGS: Liver: Liver is normal in size and homogeneous in echotexture. Gallbladder: Sonolucent without evidence cholelithiasis, gallbladder wall thickening or pericholecystic fluid. No sonographic Joy sign. Biliary ducts: Intrahepatic bile ducts are non-dilated. Extrahepatic bile duct caliber measures 3.9 mm. Normal is 6-7 mm or less in diameter, or 10 mm or less post-cholecystectomy. Pancreas: Visualized portions of the pancreas are sonographically normal. Spleen: Spleen is normal in size and homogeneous in echotexture. Kidneys: Kidneys are normal in size and echotexture. Right kidney measures 12.5 cm long; left kidney measures 12.3 cm long. No hydronephrosis or nephrolithiasis. No solid masses. Aorta: Visualized aorta is normal in caliber at less than 3 cm. Iliacs: Proximal common iliac arteries are normal in caliber at less than 2.5 cm. IVC: Intrahepatic inferior vena cava is patent. Miscellaneous: No free abdominal fluid. IMPRESSION: Unremarkable ultrasound the abdomen Approved by: Mata Mcgregor M.D. on 09/08/2023 at 15:08
[2023-09-08 14:30] LABS: Ketones (Beta-Hydroxybutyrate) 3.45 mmol/L (<0.27)
== END 2023-09-08 17:09 | disposition home or self-care (01) ==
PROVIDERS: Emergency Provider Emergency Medicine
DX: N39.0 Urinary tract infection, site not specified (principal); E11.65 Type 2 diabetes mellitus with hyperglycemia; Z79.4 Long term (current) use of insulin
CPT/HCPCS: 36415; 76700; 80053; 81003; 81015; 81025; 82009; 82805; 83690; 85025; 99282; 99284

== ENCOUNTER → 2023-12-03 13:11 | Outpatient (CLI) | payer OTHER, SELFPAY ==
[2023-12-03 13:35] LABS: Add Manual Diff / Slide Review NO; Basophils Absolute Auto 0 /uL (0-100); Basophils Percent Auto 0.5 % (0-2); Eosinophils Absolute Auto 300 /uL (0-450); Eosinophils Percent Auto 4.2 % (2-4); Hematocrit 37.7 % (36-46); Hemoglobin 12.9 g/dL (12.0-16.0); Lymphocytes Absolute Auto 2500 /uL (1100-4500); Lymphocytes Percent Auto 33.4 % (25-40); Mean Corpuscular HGB Conc 34.1 % (30-36); Mean Corpuscular Hemoglobin 34.8 PG (26-34); Mean Corpuscular Volume 101.9 fL (80-100); Monocytes Absolute Auto 600 /uL (0-900); Monocytes Percent Auto 7.7 % (3-14); Neutrophils Absolute Auto 4000 /uL (1500-7000); Neutrophils Percent Auto 54.2 % (50-75); Platelet Count 351 X10^3/uL (150-400); Red Cell Distribution Width 12.5 % (11.6-14.8); White Blood Cell Count 7.4 X10^3/uL (4.5-11.0)
[2023-12-03 13:52] LABS: Hemoglobin A1C% w Est Avg Glu 9.3 % (4.0-6.0)
[2023-12-03 14:03] LABS: HEMOLYSIS < 15 (0-50); Iron 45 ug/dL (37-170)
[2023-12-03 14:04] LABS: Alanine Aminotransferase 33 IU/L (<35); Albumin Globulin Ratio 1.3 (1.0-2.8); Alkaline Phosphatase 153 U/L (38-126); Aspartate Aminotransferase 39 IU/L (14-36); BUN Creatinine Ratio 37.7 (6-22); Bilirubin Total 0.5 mg/dL (0.2-1.3); Bilirubin Unconjugated 0.1 mg/dL (0.0-1.1); Blood Urea Nitrogen 20 mg/dL (7-17); Calcium 8.9 mg/dL (8.4-10.2); Carbon Dioxide 24 mmol/L (22-32); Chloride 107 mmol/L (98-107); Estimated Glomerular Filt Rate > 60 mL/min (>60); Glucose 115 mg/dL (70-100); HEMOLYSIS < 15 (0-50); Potassium 4.2 mmol/L (3.4-5.1); Sodium 139 mmol/L (137-145)
[2023-12-03 14:14] LABS: Percent Iron Saturation 12 % (15-50); Total Iron Binding Capacity 361 ug/dL (265-497); Transferrin 301 mg/dL (206-381)
[2023-12-03 14:25] LABS: Creatinine Urine Random 151.59 mg/dL
[2023-12-03 14:34] LABS: TSH w/ Reflex to FT4 1.19 uIU/mL (0.47-4.68)
[2023-12-03 14:40] LABS: INR 0.8 (0.9-1.3); Prothrombin Time 9.6 SECONDS (9.4-12.5)
[2023-12-03 14:57] LABS: Microalbumin Urine Random 29.5 mg/dL (0-1.6)
[2023-12-04 16:00] LABS: Hepatitis B Surface Antigen NEGATIVE s/c (NEGATIVE)
[2023-12-04 16:18] LABS: Hep C Virus Ab w/Reflex Quant NEGATIVE s/c (NEGATIVE)
[2023-12-05 13:36] LABS: ANA Screen, IFA Negative (.)
== END ==
PROVIDERS: PCP Nurse Practitioner Family; Referring Provider Nurse Practitioner Family; Visit Provider Nurse Practitioner Family
DX: E11.9 Type 2 diabetes mellitus without complications (principal); R14.0 Abdominal distension (gaseous); R53.83 Other fatigue
CPT/HCPCS: 36415; 80048; 80076; 82043; 82570; 83036; 83540; 83550; 84443; 85025; 85610; 86038; 86803; 87340

== ENCOUNTER → 2023-12-06 09:00 | Outpatient (CLI) | payer OTHER, SELFPAY ==
--- NOTE | 2023-12-06 09:03 | DIAB.MNT ---
Initial Diabetes Medical Nutrition Therapy Assessment Name: Nisha López Date: 12/06/23 Time: Dx: Type I Diabetes Provider: Feroz Larryey presents for initial DM visit. Endorses diagnosis at age 18 in 2014. Denies any FH of T1DM. Was in high school at the time of diagnosis. Excessive wt loss and thirst prior to diagnosis, hospitalization, and diagnosed of T1DM. Since recently starting islet insulin pump, she reports pain in her back, tenderness of lateral abdominal, and GI upset including bloat when she eats. States it hurts to eat. Often skipping meals and only eating snacks. Has endorsed disordered eating. Does describe a binge/restrict cycle at times. Plans to see a therapist, needs to find one. Endorses h/o guilt for DM diagnosis. Endorses trauma from childhood impacting her relationship with food. Expresses frustrations with others commenting on her diagnosis and/or food choices, understandably. States she gets very focused on numbers, ie carb counting, BG, TDD, etc. Worries about total daily dose insulin and risk of liver cirrhosis, but we discussed the actual risk factors for cirrhosis, not TDD. PUMP INFO: TDD: 47.9u Basal: 28.2u B: 7.9u L: 10.7u D: 7.7u Anthropometrics: Ht: 64 Wt: 162# 11/2023 Physical Activity: Not discussed today Self-Monitoring Blood Glucose: States she has felt she needs to have much improved BG with high expectation of her time in range. Would benefit from reducing lows and a goal of TIR 50-70%. TIR: 35% very high 19% high 43% in range 1% low 2% very low Diabetes Medications: Aspart vis Islet Insulin Pump Pertinent Labs: HgA1c: 12.1% 12/2022 9.3% 11/2023 Past Medical History: DKA, T1DM, needle stick injury accident, UTI Nutrition Rx: Plate Method Nutrition Diagnosis: - Inconsistent energy intake r/t fear of eating due to GI upset and BG variations aeb pt report Intervention: This participant was very receptive. Provided appropriate educational handouts. Discussed the following topics: Completed intake assessment. Discussed barriers to care. Encouraged eating q 3-5 hours to reduce binge/restrict cycle Discussed need for therapist role to help manage relationship with food Reviewed importance of consistent intake for GI and boluses Discussed her concerns and frustrations with others and perceptions of DM Liver health TIR goals of 50-70% Discussed the fact that she did not cause T1DM dx Discussed her relationship with food and role this may play in her DM care POtential for pain r/t much improved BG? Encouraged her to discuss this further with PCP Created SMART goals for patient self-care and success. Goals: Look into therapy options Eat BID with boluses Follow-up: [facility] CHAVEZ follow-up in 2-3 weeks Lilia Johnson RDN, KATHY Certified Diabetes Care and Parliamentary Archivist P: [phone] Thank you for this referral
== END ==
PROVIDERS: PCP Nurse Practitioner Family; Referring Provider Nurse Practitioner Family
DX: E10.9 Type 1 diabetes mellitus without complications (principal); Z96.41 Presence of insulin pump (external) (internal); R10.9 Unspecified abdominal pain; R14.0 Abdominal distension (gaseous); Z71.3 Dietary counseling and surveillance; R53.83 Other fatigue
CPT/HCPCS: 97802

== ENCOUNTER 2023-12-14 08:45 | Emergency (ER) | payer OTHER, SELFPAY ==
[2023-12-14 09:02] VITALS: BP 139/74; PULSE 115; RESP 20; TEMP 36.8; O2SAT 99; BMI 25.4
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
[2023-12-14 09:15] VITALS: BP 139/74; PULSE 115; RESP 17; O2SAT 98
--- NOTE | 2023-12-14 09:20 | PC.NURSE ---
PH paper bilateral eyes -- Right PH 7 & Left PH 7 see POC PH documentation for controls/testing
--- NOTE | 2023-12-14 09:25 | PC.NURSE ---
left sided chest pain, shortness of breath, abrasions to right top of hand no drainage. Blood sugar checked with patients smart pump/cgm = 325
[2023-12-14 09:30] VITALS: BP 139/72; PULSE 116; RESP 20; O2SAT 98
[2023-12-14 09:47] VITALS: BP 139/82; PULSE 118; RESP 17; O2SAT 98
[2023-12-14 09:50] VITALS: BP 139/82; PULSE 116; RESP 20; O2SAT 98
== END 2023-12-14 09:50 | disposition home or self-care (01) ==
PROVIDERS: Emergency Provider Emergency Medicine; PCP Nurse Practitioner Family
DX: M25.512 Pain in left shoulder (principal); V49.9XXA Car occupant (driver) (passenger) injured in unspecified traffic accident, initial encounter; R07.9 Chest pain, unspecified; R06.02 Shortness of breath; S60.511A Abrasion of right hand, initial encounter
CPT/HCPCS: 71046; 99283

== ENCOUNTER → 2024-03-20 14:23 | Outpatient (CLI) | payer OTHER, SELFPAY ==
[2024-03-20 16:50] LABS: Hemoglobin A1C% w Est Avg Glu 9.6 % (4.0-6.0)
== END ==
PROVIDERS: PCP Nurse Practitioner Family; Referring Provider Nurse Practitioner Family; Visit Provider Nurse Practitioner Family
DX: E11.9 Type 2 diabetes mellitus without complications (principal)
CPT/HCPCS: 36415; 83036

== ENCOUNTER → 2024-04-29 09:44 | Outpatient (CLI) | payer OTHER, SELFPAY ==
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
== END ==
PROVIDERS: PCP Nurse Practitioner Family; Referring Provider Nurse Practitioner Family
DX: E10.9 Type 1 diabetes mellitus without complications (principal); R14.0 Abdominal distension (gaseous); R53.83 Other fatigue; Z71.3 Dietary counseling and surveillance
CPT/HCPCS: G0108

== ENCOUNTER → 2024-05-05 10:37 | Outpatient (CLI) | payer OTHER, SELFPAY ==
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
== END ==
LOC: DIET 05-13 10:38
PROVIDERS: PCP Nurse Practitioner Family; Referring Provider Nurse Practitioner Family
DX: E10.9 Type 1 diabetes mellitus without complications (principal); Z96.41 Presence of insulin pump (external) (internal); Z71.3 Dietary counseling and surveillance; R14.0 Abdominal distension (gaseous); R53.83 Other fatigue
CPT/HCPCS: G0108

== ENCOUNTER → 2024-05-13 10:35 | Outpatient (CLI) | payer OTHER, SELFPAY ==
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
== END ==
LOC: DIET 10:35
PROVIDERS: PCP Nurse Practitioner Family; Referring Provider Nurse Practitioner Family
DX: E10.9 Type 1 diabetes mellitus without complications (principal); Z71.3 Dietary counseling and surveillance; Z96.41 Presence of insulin pump (external) (internal); R14.0 Abdominal distension (gaseous); R53.83 Other fatigue
CPT/HCPCS: 97803

== ENCOUNTER → 2024-05-20 10:46 | Outpatient (CLI) | payer OTHER, SELFPAY ==
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
== END ==
LOC: DIET 10:47
PROVIDERS: PCP Nurse Practitioner Family
DX: E10.9 Type 1 diabetes mellitus without complications (principal); R14.0 Abdominal distension (gaseous); R53.83 Other fatigue; Z71.3 Dietary counseling and surveillance
CPT/HCPCS: G0108

== ENCOUNTER → 2024-06-03 08:57 | Outpatient (CLI) | payer OTHER, SELFPAY ==
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
== END ==
PROVIDERS: PCP Nurse Practitioner Family; Referring Provider Nurse Practitioner Family
DX: E10.9 Type 1 diabetes mellitus without complications (principal); Z71.3 Dietary counseling and surveillance; R14.0 Abdominal distension (gaseous); R53.83 Other fatigue
CPT/HCPCS: 97803

== ENCOUNTER → 2024-06-25 13:04 | Outpatient (CLI) | payer OTHER, SELFPAY ==
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
== END ==
PROVIDERS: PCP Nurse Practitioner Family; Referring Provider Nurse Practitioner Family
DX: E10.65 Type 1 diabetes mellitus with hyperglycemia (principal); Z71.3 Dietary counseling and surveillance
CPT/HCPCS: 97803

== ENCOUNTER → 2024-07-29 11:07 | Outpatient (CLI) | payer OTHER, SELFPAY ==
--- NOTE | 2024-07-29 11:10 | DIAB.FU ---
Follow-up Diabetes Education Assessment: Personal CGM Start Name: Nisha López Date: 07/29/24 Time: 1110a-12p Dx: Type I Diabetes Provider: Feroz Cameron presents for DM visit. Self placed all her iLet pump equipment. Brought her personal CGm Dexcom G7. Connected devices for automated insulin delivery. Current insulin pump target set for usual 120mg/dl. May want to consider higher target since she reports she has been running higher. States she has been keeping more fruit and veggies in the house recently. Endorses eating 1-2x per day. Has addressed this in brief with behavioral health per report. Moved long acting insulin to AM to avoid lows per report. Not taking short acting insulin as of late. Continued stress impacting increased sleep, but endorses taking her SSRI more consistently than last visit. Has questions about syringe measurements and target BG with pump. Physical Activity: Not discussed today Self-Monitoring Blood Glucose: No CGM reports. Using finger sticks per report. Endorses frequent >200mg/dl. States she does not feel optimal at 100mg/dl or less. This is likely r/t frequent elevated TIR. Hoping with pump therapy her body can adjust and feel more comfortable at lower BG ranges. Encouraged goal at this time of <200mg/dl. Last TIR: Ended 06/09 62% very high 16% high 21% in range 1% low <1% very low avmg/dl GMI: % std dev: 111 mg/dl variation: 37.8% Diabetes Medications: Aspart vis Islet Insulin Pump --- restarted Pertinent Labs: HgA1c: 12.1% 12/2022 9.3% 11/2023 9.6% 03/2024 Past Medical History: DKA, T1DM, needle stick injury accident, UTI Intervention: This participant was very receptive. Provided appropriate educational handouts. Discussed the following topics: BG targets for iLet-- moved to higher at 130mg/dl at this time with goal of 110 or 120mg/dl eventually Recs on eating frequency with restarting iLet Syringe size measurements for loading insulin cartridge Overall BG targets at this time and for the future (<180mg/dl) Created SMART goals for patient self-care and success. Goals: Take Lexapro as rx'd consistently- met try to keep your routine with meds- not discussed cook meals at home each day- in progress Wear CGM and insulin pump- new Follow-up: CHAY CHAVEZ follow-up in 1-2 days and 7 days Lilia Johnson RDN, [facility] Certified Diabetes Care and Chemistry Intern P: [phone] Thank you for this referral
== END ==
LOC: DIET 11:07
PROVIDERS: PCP Nurse Practitioner Family
DX: Z46.81 Encounter for fitting and adjustment of insulin pump (principal); E10.9 Type 1 diabetes mellitus without complications; Z96.41 Presence of insulin pump (external) (internal); Z71.3 Dietary counseling and surveillance
CPT/HCPCS: 95249

== ENCOUNTER → 2024-08-06 14:48 | Outpatient (CLI) | payer OTHER, SELFPAY ==
--- NOTE | 2024-08-06 14:50 | DIAB.FU ---
Follow-up Diabetes Education Assessment Name: Nisha López Date: 08/06/24 Time: 1130a-12p Dx: Type I Diabetes Provider: Feroz Cameron presents for DM visit. Presents today with a new pump infusion set and needs guidance on use. Not currently wearing pump. Endorses dispute with a family friend that resulted in her pump removal. Does not have pump with her. Plans to get from her grandfather. Infusion site looks healthy and healing. Does not have any of her pump supplies. Plans to celebrate month this weekend. Has questions about ETOH and DM. Physical Activity: Not discussed today Self-Monitoring Blood Glucose: Slight improved TIR, though was more in range with insulin pump use. TIR: 53% very high 25% high 22% in range % low 0% very low avmg/dl GMI: 10.1% std dev: 105 mg/dl variation: 36.8% Last TIR: Ended 06/09 62% very high 16% high 21% in range 1% low <1% very low avmg/dl GMI: % std dev: 111 mg/dl variation: 37.8% Diabetes Medications: Aspart vis Islet Insulin Pump --- on hold Pertinent Labs: HgA1c: 12.1% 12/2022 9.3% 11/2023 9.6% 03/2024 Past Medical History: DKA, T1DM, needle stick injury accident, UTI Intervention: This participant was very receptive. Provided appropriate educational handouts. Discussed the following topics: infusion set use and placement Encouraged contacting family for pump/supplies tomorrow ETOH impact on BG Safety concerns and precautions with ETOH and activity Encouraged keeping low tx on person Created SMART goals for patient self-care and success. Goals: Wear CGM and insulin pump- in progress Call family for pump/supplies- new Keep low tx on you - new Follow-up: CHAY CHAVEZ follow-up in 2-3 weeks. Will check CGM and call/message prn in one week. Lilia Johnson RDN, [facility] Certified Diabetes Care and Design Printing Machine Setter P: [phone] Thank you for this referral
== END ==
LOC: DIET 14:49
PROVIDERS: PCP Nurse Practitioner Family; Referring Provider Nurse Practitioner Family
DX: E10.9 Type 1 diabetes mellitus without complications (principal); Z71.3 Dietary counseling and surveillance; Z96.41 Presence of insulin pump (external) (internal); Z46.81 Encounter for fitting and adjustment of insulin pump
CPT/HCPCS: G0108